=== PATIENT | male | born 1995 | race Caucasian/White ===

== ENCOUNTER 2016-08-08 18:20 | Emergency (ER) | payer OTHER ==
[2016-08-08 18:38] VITALS: BP 151/79; PULSE 79; TEMP 97.3; BMI 21.3
--- NOTE | 2016-08-08 19:39 | PDOC ---
History of Present Illness - General Chief Complaint: Abscess Boil Stated Complaint: ABCESS BOIL/WOUND Time Seen by Provider: 08/08/16 19:05 - History of Present Illness Initial Comments: 08/08/16 19:30 CHIEF COMPLAINT: abscess to left thigh HISTORY OF PRESENT ILLNESS: 20-year-old male with no past medical history presents to [facility] with abscess to anterior left thigh. Patient states that he noticed the abscess 3 days ago and it is a little painful today. Patient denies any nausea, fever, diarrhea. Patient states that he did shave prior to the abscess formation. PAST MEDICAL HISTORY: Denies past medical history FAMILY HISTORY: Denies SOCIAL HISTORY: Denies tobacco, alcohol, illicit drug use. SURGICAL HISTORY: Denies ALLERGIES: No known drug allergies REVIEW OF SYSTEMS General/Constitutional: Denies fever or chills. Denies weakness. Gastrointestinal: Denies nausea, vomiting, diarrhea or constipation. Musculoskeletal: Denies joint or muscle swelling or pain. Denies neck or back pain. Skin and breasts: Abscess to left thigh. Denies rash or easy bruising. PHYSICAL EXAM General Appearance: Well-appearing, appropriately dressed. No apparent distress , no intoxication. HEENT: EOMI, PERRLA, No conjunctival pallor. No photophobia, scleral icterus. Respiratory/Chest: Lungs CTAB. Cardiovascular: RRR. S1, S2. Musculoskeletal/Extremities: Normal inspection. FROM of all extremities, normal capillary refill. No tenderness to extremities, pedal edema, swelling, erythema or deformity. Integumentary: 2 cm x 3 cm erythematous forming abscess to left anterior thigh. No appreciable fluctuance, purulence, drainage. Appropriate color, dry, warm. No cyanosis, erythema, jaundice or rash Neurologic: Fully oriented, alert. Appropriate mood/affect. Motor strength 5/ 5. No appreciable EOM palsy, facial droop or sensory deficit. Past History - Past Medical History Allergies/Adverse Reactions: Allergies Allergy/AdvReac Type Severity Reaction Status Date / Time No Known Allergies Allergy Verified 08/08/16 18:38 Home Medications: Ambulatory Orders No Home Medications 0 dose .ROUTE UTDICT 01/01/12 Sulfamethoxazole/Trimethoprim [Bactrim Ds -] 1 tab PO BID #14 tablet 08/08/16 Other medical history: denies - Immunization History Td Vaccination: Yes Immunization Up to Date: Yes - Psycho/Social/Smoking Cessation Hx Anxiety: No Suicidal Ideation: No Smoking Status: No Smoking History: Never smoked Years of Tobacco Use: 0 Have you smoked in the past 12 months: No Number of Cigarettes Smoked Daily: 0 Cigars Per Day: 0 Information on smoking cessation initiated: No Hx Alcohol Use: No Drug/Substance Use Hx: No Substance Use Type: None *Physical Exam - Vital Signs Last Vital Signs Temp Pulse Resp BP Pulse Ox 97.3 F L 79 20 151/79 100 08/08/16 18:31 08/08/16 18:31 08/08/16 18:31 08/08/16 18:31 08/08/16 18:31 Medical Decision Making - Medical Decision Making 08/08/16 19:34 20 yo M with no PMH presents to [facility] with early abscess to anterior left thigh. Advised patient to apply warm compress 4-5 times daily and take antibiotics as prescribed. Abscess circumscribed with marker, advised patient if abscess grows past marked area, or fever/nausea/vomiting/diarrhea develops, return to the ER. Patient verbalized understanding and agrees to plan. 08/08/16 19:45 *DC/Admit/Observation/Transfer Diagnosis at time of Disposition: Abscess - Discharge Dispostion Disposition: HOME Condition at time of disposition: Stable Admit: No - Prescriptions Prescriptions: Sulfamethoxazole/Trimethoprim [Bactrim Ds -] 1 tab PO BID #14 tablet - Referrals Referrals: Shady Acosta MD [Primary Care Provider] - - Patient Instructions Printed Discharge Instructions: DI for Skin Abscess Additional Instructions: Please take medication as prescribed, complete the entire course of antibiotics. As discussed please apply warm compresses to your abscess 4-5 times daily to help drain the infection. Also as discussed, please return to ER if the abscess spreads beyond the marked area, you develop fever, nausea, vomiting, or diarrhea.
== END 2016-08-08 19:45 | disposition home or self-care (01) ==
LOC: JER 18:20 → JERFT 18:20
DX: L02.416 Cutaneous abscess of left lower limb (principal)
CPT/HCPCS: 99281-25

== ENCOUNTER 2024-06-16 22:25 | Emergency (ER) | payer OTHER ==
[2024-06-16 22:43] VITALS: BMI 23.0
[2024-06-16] MEDS ORDERED: ACETAMINOPHEN INJECTION 100 ML ONE (22:53)
[2024-06-16] MEDS ORDERED: FAMOTIDINE 20 MG/50 ML IVPB 20 MG/50 ML MG IVPB ONE (22:53)
[2024-06-16] MEDS ORDERED: ONDANSETRON 4 MG/2 ML VIAL ONE (22:53)
[2024-06-16] MEDS: SODIUM CHLORIDE 0.9% 500 ML INFUS.BAG IV ONE (23:01)
[2024-06-16] MEDS: FAMOTIDINE 20 MG/50 ML IVPB 20 MG/50 ML MG IVPB ONE (23:09)
[2024-06-16 23:10] LABS: BASO % 0.1 % (0-2.0); HEMATOCRIT 45.1 % (35.4-49); LYMPH % 5.6 % (8-40); MCHC 33.2 g/dl (32.0-35.9); MEAN CELL VOLUME 84.3 fl (80-96); MEAN PLT VOLUME 10.1 fl (7.5-11.1); MONO % 3.4 % (3.8-10.2); NEUT % 90.9 % (42.8-82.8); PLATELET COUNT 193 10^3/uL (134-434); RBC 5.34 M/mm3 (4.00-5.60); RDW 12.2 % (11.9-15.9); WHITE BLOOD COUNT 15.9 K/mm3 (4.0-10.0)
[2024-06-16] MEDS: ONDANSETRON 4 MG/2 ML VIAL IVPUSH ONE (23:21)
[2024-06-16] MEDS: ACETAMINOPHEN 1000 MG/100 ML BAG IVPB ONE (23:21)
[2024-06-16 23:39] LABS: POTASSIUM 3.7 mmol/L (3.5-5.1)
[2024-06-16 23:43] LABS: ALBUMIN 4.6 g/dl (3.4-5.0); BLOOD UREA NITROGEN 19.9 mg/dL (7-18)
[2024-06-16 23:45] LABS: CREATININE 1.6 mg/dL (0.55-1.3)
[2024-06-16 23:46] LABS: TOT PROT 7.5 g/dl (6.4-8.2)
[2024-06-17] MEDS: DEXTROSE 5%-NORMAL SALINE 1,000 ML IV ONE (00:26)
[2024-06-17 00:53] VITALS: RESP 16
[2024-06-17 01:01] VITALS: BP 125/53; PULSE 60; TEMP 98.3
== END 2024-06-17 01:15 | disposition home or self-care (01) ==
LOC: JER 22:25
PROC: 3E033GC Introduction of Other Therapeutic Substance into Peripheral Vein, Percutaneous Approach (ICD-10-PCS; principal; 2024-06-16)
PROC: 3E033NZ Introduction of Analgesics, Hypnotics, Sedatives into Peripheral Vein, Percutaneous Approach (ICD-10-PCS; 2024-06-16)
PROC: 3E033GC Introduction of Other Therapeutic Substance into Peripheral Vein, Percutaneous Approach (ICD-10-PCS; 2024-06-16)
PROC: 3E0337Z Introduction of Electrolytic and Water Balance Substance into Peripheral Vein, Percutaneous Approach (ICD-10-PCS; 2024-06-16)
DX: R11.2 Nausea with vomiting, unspecified (principal); R00.0 Tachycardia, unspecified; R19.7 Diarrhea, unspecified; R10.9 Unspecified abdominal pain; Z20.822 Contact with and (suspected) exposure to COVID-19
CPT/HCPCS: 0241U-QW; 36415; 80053; 83690; 85025; 93005; 93010; 99284-25; J0131